=== PATIENT | female | born 1960 | race Caucasian/White ===

== ENCOUNTER → 2017-02-07 | Day surgery (SDC) | payer OTHER ==
--- NOTE | 2017-02-07 20:58 | OP ---
DATE OF OPERATION: 02/07/2017 PREOPERATIVE DIAGNOSIS: Abnormal left mammography. POSTOPERATIVE DIAGNOSIS: Abnormal left mammography. PROCEDURE: Left stereotactic needle biopsy with clips. SURGEON: Kaylee Albright M.D. ANESTHESIA: Local. COMPLICATIONS: None. This is a sterile procedure. INDICATION FOR PROCEDURE: Patient presented with screening mammography that noted an area of clustering microcalcifications in the upper outer left breast, and on the second set seen only on the MLO view slightly inferior, posterior to the larger set. A biopsy of the one that is easily seen is recommended by the radiologist. I reviewed the images with the patient and I agreed with that as well. The procedure was discussed including need for clips. DESCRIPTION OF PROCEDURE: Patient was brought to [facility] [place], laid prone on the OR table. Using the lateral approach, the calcifications in the upper outer left breast were identified. A sterile prep was obtained. A target was chosen. There was a positive stroke margin. Using Betadine and 1% lidocaine, a 9-gauge Suros device was used to take several cores from this area. Cores were cores with calcifications. These were handled with usual calcification protocol. A clip was deployed in the area. Hemostasis assured with direct pressure. Incision was closed with Steri-Strips. She tolerated the procedure well and left the breast imaging center in good condition. KAYLEE ALBRIGHT M.D. [id number]
--- NOTE | 2017-02-08 15:42 | PATH ---
Surgical Pathology Report Patient Name: ASHISH WILLIAM [facility]. Rec. #: [id number] /Age/Gender: 1960 (Age: 56) / F Account: [id number] Location: [facility] Taken: 02/07/2017 Received: 02/07/2017 Reported: 02/08/2017 Physicians: Kaylee Phelan M.D. Specimen(s) Received A: LEFT BREAST SPECIMEN WITH CALCIFICATIONS B: LEFT BREAST SPECIMEN WITHOUT CALCIFICATIONS Clinical History Nonpalpable lesion Mammographic findings: Suspicious microcalcification Ultrasound findings: suspicious Final Diagnosis A. BREAST, LEFT, WITH CALCIFICATIONS, STEREOTACTIC BIOPSY: BENIGN BREAST TISSUE SHOWING FOCAL COLUMNAR CELL CHANGES/COLUMNAR CELL HYPERPLASIA WITH ASSOCIATED CALCIFICATIONS. B. BREAST, LEFT, WITHOUT CALCIFICATIONS, STEREOTACTIC BIOPSY: BENIGN BREAST TISSUE SHOWING FOCAL COLUMNAR CELL CHANGES WITH ASSOCIATED CALCIFICATIONS. Electronically Signed Leigh Rizvi M.D. Gross Description A. Received in formalin, labeled "left breast with calcifications," are 3 grace-yellow, cylindrical portions of fibroadipose tissue ranging from 2.7-4.0 cm. in length and averaging 0.3 cm. in diameter. The specimen is submitted in toto in one cassette. B. Received in formalin labeled "left breast without calcifications," is a 2.6 x 2.0 x 0.3 cm aggregate of multiple grace-yellow, irregular to cylindrical portions of fibroadipose tissue. The formalin is filtered and the specimen is entirely submitted in one cassette. Time to formalin fixation: 5 minutes Total formalin fixation time: Approximately 7 hours. 02/07/201702/07/2017
== END | disposition home or self-care (01) ==
LOC: FMAMMOTONE 10:18
PROVIDERS: ATTEND Surgery
PROC: 0HBU3ZX Excision of Left Breast, Percutaneous Approach, Diagnostic (ICD-10-PCS; principal; 2017-02-07)
DX: N64.89 Other specified disorders of breast (principal); R92.8 Other abnormal and inconclusive findings on diagnostic imaging of breast
CPT/HCPCS: 19081; 88305-TC